=== PATIENT | male | born 1955 | race Hispanic/Latino ===

== ENCOUNTER 2020-02-08 09:53 | Inpatient (IN) | payer OTHER, SELFPAY ==
[2020-02-08] MEDS ORDERED: Dexamethasone 10 MG/ML VIAL ONE (10:22)
[2020-02-08 10:42] LABS: #Lymphocytes 0.5 thou/uL (1.20-3.40); #Monocytes 0.2 thou/uL (0.11-0.59); #Neutrophils 3.8 thou/uL (1.40-6.50); %Basophils 0.4 % (0.0-1.0); %Eosinophils 0.2 % (0.0-10.0); %Lymphocytes 10.8 % (21.0-51.0); %Monocytes 4.8 % (0.0-10.0); %Neutrophils 83.7 % (42.0-75.0); Hemoglobin 15.4 g/dL (14.0-18.0); Mean Corpuscular HGB CONC 33.9 g/dL (32.0-36.0); Mean Corpuscular Volume 85.4 fL (78.0-98.0); Mean Platelet Volume 10.3 fL (7.4-10.4); Platelet Count 124 thou/uL (130-400); RBC Distribution Width 12.7 % (11.5-14.5); Red Blood Cell (RBC) Count 5.31 mill/uL (4.70-6.10); White Blood Cell (WBC) Count 4.6 thou/uL (4.8-10.8)
[2020-02-08 11:04] LABS: ALT (SGPT) 22 U/L (8-55); AST (SGOT) 26 U/L (5-34); Albumin 4.1 g/dL (3.4-4.8); Alkaline Phosphatase 75 U/L (40-110); Anion Gap 14 mmol/L (10-20); BUN (Urea Nitrogen) 12 mg/dL (8.4-25.7); Bilirubin, Total 0.6 mg/dL (0.2-1.2); Calc. Creatinine Clearance 0 mL/min (70-130); Calcium 8.7 mg/dL (7.8-10.44); Carbon Dioxide 23 mmol/L (23-31); Chloride 98 mmol/L (98-107); Estimated GFR-MDRD Greater than 90; Globulin 3.1 g/dL (2.4-3.5); Glucose 128 mg/dL (80-115); Protein, Total 7.2 g/dL (5.8-8.1); Sodium 131 mmol/L (136-145)
--- NOTE | 2020-02-08 11:17 | RAD ---
PORTABLE CHEST: HISTORY: Shortness of breath. Asthma. COMPARISON: No comparison. FINDINGS: There are patchy bibasilar infiltrates. The heart is upper normal size with mild vascular engorgemen t. IMPRESSION: Patchy bibasilar infiltrates and/or atelectasis. POS: AGW
[2020-02-08] MEDS ORDERED: Acetaminophen 500 MG TAB ONE (11:39)
[2020-02-08 12:29] LABS: Troponin I 0.019 ng/mL (< 0.028)
[2020-02-08] MEDS ORDERED: Acetaminophen 325 MG TAB PO PRN (13:16)
[2020-02-08] MEDS ORDERED: Ondansetron PF 4 MG/2 ML Vial IVP PRN ×2 (13:16→14:17)
[2020-02-08] MEDS ORDERED: Ondansetron ODT 4 MG TAB SL PRN (13:16)
[2020-02-08] MEDS ORDERED: Acetaminophen 650 MG Suppository PR PRN (14:17)
[2020-02-08] MEDS ORDERED: Ondansetron ODT 4 MG TAB PO PRN (14:17)
[2020-02-08] MEDS ORDERED: Senokot S 8.6-50 MG TAB PO PRN (14:17)
[2020-02-08] MEDS ORDERED: Albuterol Sulfate 2.5 mg/3 ml Neb NEB PRN (14:18)
[2020-02-08] MEDS ORDERED: Dextrose 5% in Water 1,000 ML IV PRN (14:19)
[2020-02-08] MEDS ORDERED: Dextrose 50% Abboject 50 ML SYRINGE SLOW IVP PRN (14:19)
[2020-02-08] MEDS ORDERED: HumaLOG 300 UNITS/3 ML VIAL SC PRN (14:19)
[2020-02-08 14:53] VITALS: BMI 31.6
--- NOTE | 2020-02-08 15:25 | HP ---
PRIMARY CARE PHYSICIAN: [facility] in [place]. CHIEF COMPLAINT: Shortness of breath. HISTORY OF PRESENT ILLNESS: This is a 64-year-old male with a past medical history of asthma, hypertension, and diabetes, who presented to the emergency room with a 3-day history of worsening of his asthma symptoms, increasing cough nonproductive with chest pain from the cough, and increasing shortness of breath. He has been taking his Symbicort as well as his nebulizer every hour, he states without any improvement. He reports that his one of his children has had some allergy symptoms and is currently getting COVID testing, but no one is tested positive yet and no one at his work has been having any symptoms recently. He has no known positive COVID contacts. The patient was evaluated in the emergency room. He was found to be in some respiratory distress, improved with oxygen. He was also found to have a temperature of 102, it is down with Tylenol and he had a COVID test done and is being admitted to the floor after a dose of dexamethasone in the emergency room. REVIEW OF SYSTEMS: CONSTITUTIONAL: No fevers that he has noticed at home. No chills. EYES: No double vision or blurred vision. ENT: No congestion, drainage, or sore throat. CARDIOVASCULAR: See HPI. No palpitations or racing heart. PULMONARY: See HPI. GASTROINTESTINAL: No abdominal pain. No nausea or vomiting. He has had some loose stools about once per day for the last 3 days. No mucus or blood in them. GENITOURINARY: No dysuria or hematuria. MUSCULOSKELETAL: He has some diffuse muscle and body aches, especially in his back. SKIN: No rashes or lesions noted. NEUROLOGIC: No numbness, tingling, or focal weakness. PAST MEDICAL HISTORY: 1. Hypertension. 2. Diabetes mellitus type 2. 3. Gastroesophageal reflux disease. 4. Asthma. 5. Hemorrhoids. PAST SURGICAL HISTORY: 1. Knee surgery. 2. Tonsillectomy. 3. Cardiac stents are mentioned in the ER note; however, the patient strenuously denies ever having cardiac stents or any cardiac history and states he has never had an angiogram or any procedure that type done in the past. SOCIAL HISTORY: The patient quit smoking 25 to 30 years ago and he does not drink regular alcohol since then either. No illicit drugs. He is and lives with his and has 2 children. He states he is a full code. Should he be incapacitated, he states that his has been dealing with some cancer treatments recently and so, he does not want her to be his medical decision maker. He says his two children will be his medical decision makers, their names are Wendy and Henrik Mccray. FAMILY HISTORY: Mother had diabetes. ALLERGIES: ASPIRIN AND NONSTEROIDALS CAUSE ASTHMA EXACERBATIONS THAT REQUIRE HOSPITALIZATION. CURRENT MEDICATIONS: 1. Symbicort. 2. Unknown yellow inhaler. 3. Unknown nebulizer treatments. 4. Prilosec. 5. Unknown other medications, the patient does not know what he takes at home. PHYSICAL EXAMINATION: VITAL SIGNS: Blood pressure 116/64, pulse 105, respirations 20, temperature 100.4 down from 102.8 initially, O2 saturation up to 94% on 2 L of oxygen and was at 91%, and he was having increased work of breathing when he first arrived. He appears to be breathing comfortably now. GENERAL: This is a well-developed, obese male, in no acute distress. HEENT: Pupils are equal, round, and reactive to light. Nares with nasal cannula oxygen in place. Oropharynx covered with mass currently. He is actively coughing as does not do further exam in this area. NECK: Supple. No lymphadenopathy. No thyroid nodules or enlargement. No JVD. HEART: Regular rhythm. Mildly tachycardic. No murmurs, rubs, or gallops. LUNGS: The patient has some bibasilar crackles that are dry sounding. Decent air movement throughout. Occasional wheezing. No increased work of breathing on the oxygen. ABDOMEN: Soft, nontender to palpation. Normoactive bowel sounds. No hepatosplenomegaly or other masses. EXTREMITIES: No clubbing, cyanosis, or edema. SKIN: No rashes or lesions noted. NEUROLOGIC: The patient moves all extremities equally. No facial droop. PSYCHIATRIC: Alert and oriented x3. Normal mood and affect. LABORATORY DATA: CBC with a white blood cell count of low at 4.6, neutrophils are 83%, lymphocytes are low at 10%. The rest of his CBC is normal. Complete metabolic panel is notable for sodium of 131 and glucose of 128. The rest of it is normal. Lactic acid was negative. Troponin was negative x1. IMAGING STUDIES: X-ray done in the emergency room along with the radiologist's report, this is some patchy bibasilar infiltrate/atelectasis. EKG done in the emergency room shows sinus tachycardia of 118 beats per minute with frequent PVCs. No other significant ST-segment changes or T-wave abnormalities. ASSESSMENT: 1. Viral pneumonia, likely COVID infection. We will continue dexamethasone that started in the emergency room. This should help with any asthma exacerbation as well. We will give supplementary oxygen. 2. Sepsis with fever, tachycardia, and drop in O2 saturations. The patient received some IV fluids in the emergency room. His lactic acid was negative. At this point, he does not look to have a bacterial infection, so we will hold off on any antibiotics. 3. Asthma with exacerbation from #1. We will continue dexamethasone 6 mg daily for 10 days. We will give albuterol inhaler every 4 hours as needed for coughing, wheezing, shortness of breath, and will resume his Symbicort twice a day. 4. Gastroesophageal reflux disease. We will put the patient on a PPI daily. 5. Diabetes mellitus type 2. We will put the patient on fingerstick blood sugars q.a.c. and at bedtime with a low insulin sliding scale. Should his blood sugars spikes significantly from the dexamethasone, we will start him on daily long-acting insulin. We will also try and find out what diabetes medicines he is on at home. 6. Deep venous thrombosis prophylaxis. Put the patient on subcu Lovenox daily. CODE STATUS: The patient is a full code. Should he be incapacitated, he would like his children, Wendy and Henrik Mccray, to be his medical decision makers. Job ID: [id number]
[2020-02-08] MEDS: Guaifenesin DM 100-10/5 ML UDCUP PO PRN (17:48)
[2020-02-08] MEDS ORDERED: Albuterol 200 PUFF (6.7GM INHALER) INH PRN (23:51)
[2020-02-09 06:41] LABS: #Lymphocytes 0.7 thou/uL (1.20-3.40); #Monocytes 0.4 thou/uL (0.11-0.59); #Neutrophils 6.4 thou/uL (1.40-6.50); %Basophils 0.2 % (0.0-1.0); %Eosinophils 0.2 % (0.0-10.0); %Lymphocytes 9.7 % (21.0-51.0); %Monocytes 5.3 % (0.0-10.0); %Neutrophils 84.7 % (42.0-75.0); Hemoglobin 15.2 g/dL (14.0-18.0); Mean Corpuscular HGB CONC 34.9 g/dL (32.0-36.0); Mean Corpuscular Hemoglobin 29.9 pg (27.0-31.0); Mean Corpuscular Volume 85.5 fL (78.0-98.0); Mean Platelet Volume 10.3 fL (7.4-10.4); Platelet Count 132 thou/uL (130-400); RBC Distribution Width 12.7 % (11.5-14.5); Red Blood Cell (RBC) Count 5.09 mill/uL (4.70-6.10); White Blood Cell (WBC) Count 7.5 thou/uL (4.8-10.8)
[2020-02-09 07:02] LABS: Anion Gap 13 mmol/L (10-20); BUN (Urea Nitrogen) 18 mg/dL (8.4-25.7); Calc. Creatinine Clearance 140 mL/min (70-130); Calcium 8.7 mg/dL (7.8-10.44); Carbon Dioxide 24 mmol/L (23-31); Chloride 99 mmol/L (98-107); Estimated GFR-MDRD Greater than 90; Glucose 119 mg/dL (80-115); Potassium 3.8 mmol/L (3.5-5.1); Sodium 132 mmol/L (136-145)
[2020-02-09] MEDS: Dexamethasone 4 MG TAB PO SCH (07:37)
[2020-02-09] MEDS: Enoxaparin Sodium 40 MG/0.4 ML SYRINGE SC SCH (07:38)
[2020-02-09] MEDS: Acetaminophen 325 MG TAB PO PRN (08:00)
--- NOTE | 2020-02-09 10:34 | EKG ---
Test Reason : Blood Pressure : / mmHG Vent. Rate : 118 BPM Atrial Rate : 118 BPM P-R Int : 148 ms QRS Dur : 078 ms QT Int : 320 ms P-R-T Axes : 005 018 041 degrees QTc Int : 448 ms Sinus tachycardia with frequent Premature ventricular complexes and Fusion complexes Otherwise normal ECG Confirmed by DREA AMEZCUA DO ([id number]), proposal editor BOOGIE GAONA ([id number]) on 02/09/2020 10:34:28 AM Referred By: Confirmed By:DREA AMEZCUA DO
[2020-02-09] MEDS: HumaLOG 300 UNITS/3 ML VIAL SC PRN ×2 (12:44→18:00)
--- NOTE | 2020-02-09 13:54 | PRG ---
DATE OF SERVICE: 02/09/2020 SUBJECTIVE: The patient is seen and examined at the bedside. He noticed some improvement since yesterday. His appetite is fair. Shortness of breath improved. OBJECTIVE: VITAL SIGNS: Blood pressure is 101/65, pulse is 80, temperature is 98, maximal temperature was 100, respiratory rate is 18, and O2 saturation is 98% on 2 L by nasal cannula. HEENT: His head is atraumatic and normocephalic. Eyes are PERRLA. Sclerae are nonicteric. Oral mucosa is moist. NECK: Supple. LUNGS: Breath sounds somewhat diminished at both bases. No wheezing. Few crackles at both bases and few rales at both bases, similar bilaterally. ABDOMEN: Soft, nontender, nondistended. EXTREMITIES: No clubbing, cyanosis or edema. NEUROLOGIC: He follows my commands. He moves his all 4 extremities. There is no any motor deficits. LABORATORY DATA: Showed normal white count, normal hemoglobin, normal hematocrit. Sodium of 132, potassium 3.8, chloride 99, CO2 of 24, BUN 18, creatinine 0.69. Glycemia is ranging from 119 to 198. Calcium 8.7. Microbiology showed 2 negative blood cultures. IMPRESSION: 1. Viral pneumonia likely COVID infection but the testing is still in progress. 2. Sepsis. 3. Asthma, improved. 4. Gastroesophageal reflux disease. 5. Diabetes mellitus type 2, relatively well controlled. PLAN: Plan is to continue observation and isolation for COVID. Continue dexamethasone. Continue albuterol p.r.n. If his COVID testing comes back negative and he improves quickly, most likely he will be able to go home soon on oral regimen. We should have results on his testing back by tomorrow morning. Job ID: [id number]
[2020-02-09] MEDS: Guaifenesin DM 100-10/5 ML UDCUP PO PRN ×2 (14:14→18:54)
[2020-02-09 15:05] LABS: SARS-CoV-2 MS2 Positive; SARS-CoV-2 N Gene Positive; SARS-CoV-2 S Gene Positive; SARS-CoV-2 orf1ab Positive
[2020-02-10] MEDS: Acetaminophen 325 MG TAB PO PRN ×6 (01:22→23:52)
[2020-02-10] MEDS: Guaifenesin DM 100-10/5 ML UDCUP PO PRN ×3 (01:22→23:29)
[2020-02-10] MEDS: Dexamethasone 4 MG TAB PO SCH (09:39)
[2020-02-10] MEDS: Enoxaparin Sodium 40 MG/0.4 ML SYRINGE SC SCH (09:40)
--- NOTE | 2020-02-10 09:57 | PDOC.HOSPP ---
- Subjective Encounter Date: 02/10/20 Encounter Time: 12:00 Subjective: Patient was doing ok on RA overnight, but now back on O2. Cough and SOB unchanged. - Objective Vital Signs & Weight: Vital Signs (12 hours) Temp Pulse Resp BP Pulse Ox 02/10/20 07:57 98.2 F 67 16 105/64 96 02/10/20 04:45 98.8 F 70 18 103/62 96 02/10/20 03:15 95 02/10/20 01:15 100.6 F H 88 16 117/62 95 Weight Weight 196 lb 6.4 oz I&O: 02/09/20 02/10/20 02/11/20 06:59 06:59 06:59 Intake Total 610 1450 Balance 610 1450 Result Diagrams: 02/09/20 06:28 02/09/20 06:28 Additional Labs: Accuchecks 02/10/20 02/09/20 02/09/20 05:32 20:54 16:28 POC Glucose 109 133 H 244 H 02/09/20 11:49 POC Glucose 198 H Hospitalist ROS - Review of Systems Constitutional: reports: fever Respiratory: reports: cough, shortness of breath Cardiovascular: denies: chest pain Gastrointestinal: denies: nausea, vomiting, abdominal pain Genitourinary: denies: dysuria - Medication Medications: Active Medications Generic Name Dose Route Start Last Admin Trade Name Freq PRN Reason Stop Dose Admin Acetaminophen 650 mg 02/08/20 14:17 02/10/20 05:23 Tylenol PO 650 mg Q4H PRN Administration Headache/Fever/Mild Pain (1-3) Dexamethasone 6 mg 02/09/20 08:00 02/10/20 09:39 Decadron PO 6 mg QAM-WM ZEINAB Administration Enoxaparin Sodium 40 mg 02/09/20 09:00 02/10/20 09:40 Lovenox SC Not Given 0900 ZEINAB Guaifenesin/Dextromethorphan 15 ml 02/08/20 14:17 02/10/20 05:22 Robitussin Dm PO 15 ml Q4H PRN Administration Cough Insulin Human Lispro 0 units 02/08/20 14:19 02/09/20 18:00 Humalog SC 3 unit .MILD SLIDING SCALE PRN Administration Mild Correctional Scale Pantoprazole Sodium 40 mg 02/09/20 09:00 02/10/20 09:39 Protonix PO 40 mg DAILY ZEINAB Administration - Exam General Appearance: NAD, awake alert ENT: moist mucosa Heart: RRR, no murmur Respiratory: CTAB, no wheezes, no rales, no ronchi Gastrointestinal: soft, non-tender, non-distended, normal bowel sounds Psychiatric: normal affect, normal behavior, A&O x 3 Hosp A/P (1) Pneumonia due to COVID-19 virus Code(s): U07.1 - COVID-19; J12.89 - OTHER VIRAL PNEUMONIA Status: Acute (2) Sepsis Code(s): A41.9 - SEPSIS, UNSPECIFIED ORGANISM Status: Resolved (3) Asthma exacerbation Code(s): J45.901 - UNSPECIFIED ASTHMA WITH (ACUTE) EXACERBATION Status: Acute Qualifiers: Asthma severity: mild (4) GERD (gastroesophageal reflux disease) Code(s): K21.9 - GASTRO-ESOPHAGEAL REFLUX DISEASE WITHOUT ESOPHAGITIS Status: Acute (5) Diabetes mellitus type 2 in obese Code(s): E11.69 - TYPE 2 DIABETES MELLITUS WITH OTHER SPECIFIED COMPLICATION; E66.9 - OBESITY, UNSPECIFIED Status: Acute - Plan Patient positive for Covid-19. Was doing better but now requiring more oxygen. If deteriorates will ask Dr. Palacios for imput.
[2020-02-10] MEDS: HumaLOG 300 UNITS/3 ML VIAL SC PRN (16:55)
[2020-02-10] MEDS ORDERED: Benzonatate 100 MG CAP PO PRN (23:28)
[2020-02-11] MEDS: Dexamethasone 4 MG TAB PO SCH (07:48)
[2020-02-11] MEDS: Acetaminophen 325 MG TAB PO PRN (07:49)
[2020-02-11] MEDS: Enoxaparin Sodium 40 MG/0.4 ML SYRINGE SC SCH (08:02)
--- NOTE | 2020-02-11 08:46 | PDOC.HOSPP ---
- Subjective Encounter Date: 02/11/20 Encounter Time: 13:00 Subjective: Patient doing better today. He was able to be weaned off of O2 this morning, and though he feels some shortness of breath on ambulation his sats have been staying up. No cough today. Energy better and eating better. - Objective Vital Signs & Weight: Vital Signs (12 hours) Temp Pulse Resp BP Pulse Ox 02/11/20 08:00 93 L 02/11/20 07:58 98.1 F 69 16 114/69 93 L 02/11/20 05:15 98.4 F 65 18 110/73 93 L 02/11/20 01:42 94 L 02/10/20 23:52 98.3 F 72 18 116/71 94 L Weight Weight 196 lb 6.4 oz I&O: 02/10/20 02/11/20 02/12/20 06:59 06:59 06:59 Intake Total 1450 730 Balance 1450 730 Result Diagrams: 02/09/20 06:28 02/09/20 06:28 Additional Labs: Accuchecks 02/11/20 02/10/20 02/10/20 06:05 20:45 15:54 POC Glucose 120 H 170 H 222 H 02/10/20 11:52 POC Glucose 129 H Hospitalist ROS - Review of Systems Constitutional: denies: fever, chills Respiratory: reports: shortness of breath, SOB with excertion. denies: cough Cardiovascular: denies: chest pain, palpitations Gastrointestinal: denies: nausea, vomiting, abdominal pain - Medication Medications: Active Medications Generic Name Dose Route Start Last Admin Trade Name Annetta PRN Reason Stop Dose Admin Acetaminophen 650 mg 02/08/20 14:17 02/11/20 07:49 Tylenol PO 650 mg Q4H PRN Administration Headache/Fever/Mild Pain (1-3) Benzonatate 100 mg 02/10/20 23:28 02/11/20 05:58 Tessalon PO 100 mg TIDPRN PRN Administration Cough Dexamethasone 6 mg 02/09/20 08:00 02/11/20 07:48 Decadron PO 6 mg QAM-WM ZEINAB Administration Enoxaparin Sodium 40 mg 02/09/20 09:00 02/11/20 08:02 Lovenox SC Not Given 0900 ZEINAB Guaifenesin/Dextromethorphan 15 ml 02/08/20 14:17 02/10/20 23:29 Robitussin Dm PO 15 ml Q4H PRN Administration Cough Insulin Human Lispro 0 units 02/08/20 14:19 02/10/20 16:55 Humalog SC 3 unit .MILD SLIDING SCALE PRN Administration Mild Correctional Scale Pantoprazole Sodium 40 mg 02/09/20 09:00 02/11/20 07:48 Protonix PO 40 mg DAILY ZEINAB Administration - Exam General Appearance: NAD, awake alert ENT: moist mucosa Heart: RRR, no murmur, no gallops, no rubs Respiratory: CTAB, no wheezes, no rales, no ronchi, no tachypnea Gastrointestinal: soft, non-tender, non-distended, normal bowel sounds Psychiatric: normal affect, normal behavior, A&O x 3 Hosp A/P (1) Pneumonia due to COVID-19 virus Code(s): U07.1 - COVID-19; J12.89 - OTHER VIRAL PNEUMONIA Status: Acute (2) Sepsis Code(s): A41.9 - SEPSIS, UNSPECIFIED ORGANISM Status: Resolved (3) Asthma exacerbation Code(s): J45.901 - UNSPECIFIED ASTHMA WITH (ACUTE) EXACERBATION Status: Acute Qualifiers: Asthma severity: mild (4) GERD (gastroesophageal reflux disease) Code(s): K21.9 - GASTRO-ESOPHAGEAL REFLUX DISEASE WITHOUT ESOPHAGITIS Status: Acute (5) Diabetes mellitus type 2 in obese Code(s): E11.69 - TYPE 2 DIABETES MELLITUS WITH OTHER SPECIFIED COMPLICATION; E66.9 - OBESITY, UNSPECIFIED Status: Acute - Plan Patient positive for Covid-19. On dexamethasone 6mg daily 4/10 doses. Patient weaned back off O2 this morning. Will watch closely for deterioration. Possibly home tomorrow if continues to do well. comfort station supervisor phone used for interview.
[2020-02-12] MEDS: Enoxaparin Sodium 40 MG/0.4 ML SYRINGE SC SCH (08:49)
[2020-02-12] MEDS: Dexamethasone 4 MG TAB PO SCH (08:49)
--- NOTE | 2020-02-12 15:39 | PDOC.HOSPP ---
- Subjective Encounter Date: 02/12/20 Encounter Time: 13:30 Subjective: pt up in bed states he feels well - Objective Vital Signs & Weight: Vital Signs (12 hours) Temp Pulse Resp BP Pulse Ox 02/12/20 08:50 97.7 F 65 20 117/75 92 L Weight Weight 196 lb 6.4 oz I&O: 02/11/20 02/12/20 02/13/20 06:59 06:59 06:59 Intake Total 730 Balance 730 Result Diagrams: 02/09/20 06:28 02/09/20 06:28 Additional Labs: Accuchecks 02/12/20 02/12/20 02/11/20 11:16 04:49 20:51 POC Glucose 145 H 116 H 183 H 02/11/20 16:00 POC Glucose 207 H Hospitalist ROS - Review of Systems Cardiovascular: denies: chest pain, palpitations, orthopnea, paroxysmal noc. dyspnea, edema, light headedness, other Gastrointestinal: denies: nausea, vomiting, abdominal pain, diarrhea, constipation, melena, hematochezia, other Genitourinary: denies: dysuria, frequency, incontinence, hematuria, retention, other - Medication Medications: Active Medications Generic Name Dose Route Start Last Admin Trade Name Freq PRN Reason Stop Dose Admin Acetaminophen 650 mg 02/08/20 14:17 02/11/20 07:49 Tylenol PO 650 mg Q4H PRN Administration Headache/Fever/Mild Pain (1-3) Benzonatate 100 mg 02/10/20 23:28 02/11/20 05:58 Tessalon PO 100 mg TIDPRN PRN Administration Cough Dexamethasone 6 mg 02/09/20 08:00 02/12/20 08:49 Decadron PO 6 mg QAM-WM ZEINAB Administration Enoxaparin Sodium 40 mg 02/09/20 09:00 02/12/20 08:49 Lovenox SC 40 mg 0900 ZEINAB Administration Guaifenesin/Dextromethorphan 15 ml 02/08/20 14:17 02/10/20 23:29 Robitussin Dm PO 15 ml Q4H PRN Administration Cough Insulin Human Lispro 0 units 02/08/20 14:19 02/10/20 16:55 Humalog SC 3 unit .MILD SLIDING SCALE PRN Administration Mild Correctional Scale Pantoprazole Sodium 40 mg 02/09/20 09:00 02/12/20 08:49 Protonix PO 40 mg DAILY ZEINAB Administration - Exam Neck: negative: supple, symmetric, no JVD, no thyromegaly, no lymphadenopathy, no carotid bruit, JVD Heart: negative: RRR, no murmur, no gallops, no rubs, normal peripheral pulses, irregular, diminshed peripheral pulses, murmur present, II/IV, III/IV Respiratory: negative: CTAB, no wheezes, no rales, no ronchi, normal chest expansion, no tachypnea, normal percussion, rales, rhonchi, tachypneic, wheezes Gastrointestinal: negative: soft, non-tender, non-distended, normal bowel sounds , no palpable masses, no hepatomegaly, no splenomegaly, no bruit, no guarding, no rigidity, tender to palpation, distended, diminished bowl sounds, voluntary guarding Hosp A/P (1) Asthma exacerbation Code(s): J45.901 - UNSPECIFIED ASTHMA WITH (ACUTE) EXACERBATION Status: Acute Qualifiers: Asthma severity: mild (2) Diabetes mellitus type 2 in obese Code(s): E11.69 - TYPE 2 DIABETES MELLITUS WITH OTHER SPECIFIED COMPLICATION; E66.9 - OBESITY, UNSPECIFIED Status: Acute (3) GERD (gastroesophageal reflux disease) Code(s): K21.9 - GASTRO-ESOPHAGEAL REFLUX DISEASE WITHOUT ESOPHAGITIS Status: Acute (4) Pneumonia due to COVID-19 virus Code(s): U07.1 - COVID-19; J12.89 - OTHER VIRAL PNEUMONIA Status: Acute (5) Sepsis Code(s): A41.9 - SEPSIS, UNSPECIFIED ORGANISM Status: Resolved - Plan will continue steroids/vit c and zinc. pt is off oxygen but feels sob. will watch him one more day if he feels well will discharge. dexamethasone 11/21
[2020-02-12] MEDS: HumaLOG 300 UNITS/3 ML VIAL SC PRN (16:32)
[2020-02-13] MEDS: Dexamethasone 4 MG TAB PO SCH (09:01)
[2020-02-13] MEDS: Ascorbic Acid 500 mg Chewable Tablet PO SCH (09:01)
[2020-02-13] MEDS: Zinc Sulfate 220 MG CAP PO SCH (09:02)
[2020-02-13] MEDS: Enoxaparin Sodium 40 MG/0.4 ML SYRINGE SC SCH (09:02)
[2020-02-13] MEDS: HumaLOG 300 UNITS/3 ML VIAL SC PRN (16:53)
[2020-02-13 17:21] LABS: #Lymphocytes 0.6 thou/uL (1.20-3.40); #Monocytes 0.3 thou/uL (0.11-0.59); #Neutrophils 6.5 thou/uL (1.40-6.50); %Basophils 0.3 % (0.0-1.0); %Eosinophils 0.3 % (0.0-10.0); %Lymphocytes 8.1 % (21.0-51.0); %Monocytes 4.4 % (0.0-10.0); %Neutrophils 86.9 % (42.0-75.0); Mean Corpuscular HGB CONC 33.9 g/dL (32.0-36.0); Mean Corpuscular Hemoglobin 28.7 pg (27.0-31.0); Mean Corpuscular Volume 84.5 fL (78.0-98.0); Mean Platelet Volume 8.9 fL (7.4-10.4); Platelet Count 300 thou/uL (130-400); RBC Distribution Width 12.5 % (11.5-14.5); Red Blood Cell (RBC) Count 5.57 mill/uL (4.70-6.10); White Blood Cell (WBC) Count 7.5 thou/uL (4.8-10.8)
[2020-02-13 17:44] LABS: ALT (SGPT) 57 U/L (8-55); AST (SGOT) 23 U/L (5-34); Alkaline Phosphatase 83 U/L (40-110); Anion Gap 12 mmol/L (10-20); BUN (Urea Nitrogen) 16 mg/dL (8.4-25.7); Bilirubin, Total 0.6 mg/dL (0.2-1.2); CRP (Inflammatory) Less than 0.50 mg/dL (= or < 0.5); Calc. Creatinine Clearance 129 mL/min (70-130); Calcium 8.9 mg/dL (7.8-10.44); Carbon Dioxide 25 mmol/L (23-31); Chloride 98 mmol/L (98-107); Estimated GFR-MDRD Greater than 90; Globulin 3.2 g/dL (2.4-3.5); Glucose 211 mg/dL (80-115); Potassium 4.5 mmol/L (3.5-5.1); Protein, Total 7.2 g/dL (5.8-8.1); Sodium 130 mmol/L (136-145)
[2020-02-14 07:56] LABS: ALT (SGPT) 45 U/L (8-55); AST (SGOT) 16 U/L (5-34); Albumin 3.5 g/dL (3.4-4.8); Alkaline Phosphatase 70 U/L (40-110); Bilirubin, Direct 0.4 mg/dL (0.1-0.3); Bilirubin, Total 0.7 mg/dL (0.2-1.2); Protein, Total 6.4 g/dL (5.8-8.1)
[2020-02-14] MEDS: Zinc Sulfate 220 MG CAP PO SCH (08:02)
[2020-02-14] MEDS: Ascorbic Acid 500 mg Chewable Tablet PO SCH (08:02)
[2020-02-14] MEDS: Dexamethasone 4 MG TAB PO SCH (08:02)
[2020-02-14] MEDS: Enoxaparin Sodium 40 MG/0.4 ML SYRINGE SC SCH (08:03)
[2020-02-14 12:32] VITALS: BP 117/73; TEMP 97.7
--- NOTE | 2020-02-15 14:45 | PDOC.HOSPP ---
- Subjective Encounter Date: 02/13/20 Encounter Time: 15:00 Subjective: pt up in bed no complains - Objective Vital Signs & Weight: Weight Weight 196 lb 6.4 oz I&O: 02/14/20 02/15/20 02/16/20 06:59 06:59 06:59 Intake Total 700 520 Balance 700 520 Result Diagrams: 02/13/20 17:15 02/13/20 17:15 Hospitalist ROS - Review of Systems Respiratory: denies: cough, dry, shortness of breath, hemoptysis, SOB with excertion, pleuritic pain, sputum, wheezing, other Cardiovascular: denies: chest pain, palpitations, orthopnea, paroxysmal noc. dyspnea, edema, light headedness, other Gastrointestinal: denies: nausea, vomiting, abdominal pain, diarrhea, constipation, melena, hematochezia, other - Exam Neck: negative: supple, symmetric, no JVD, no thyromegaly, no lymphadenopathy, no carotid bruit, JVD Heart: negative: RRR, no murmur, no gallops, no rubs, normal peripheral pulses, irregular, diminshed peripheral pulses, murmur present, II/IV, III/IV Respiratory: negative: CTAB, no wheezes, no rales, no ronchi, normal chest expansion, no tachypnea, normal percussion, rales, rhonchi, tachypneic, wheezes Gastrointestinal: negative: soft, non-tender, non-distended, normal bowel sounds , no palpable masses, no hepatomegaly, no splenomegaly, no bruit, no guarding, no rigidity, tender to palpation, distended, diminished bowl sounds, voluntary guarding Hosp A/P (1) Asthma exacerbation Code(s): J45.901 - UNSPECIFIED ASTHMA WITH (ACUTE) EXACERBATION Status: Acute Qualifiers: Asthma severity: mild (2) Diabetes mellitus type 2 in obese Code(s): E11.69 - TYPE 2 DIABETES MELLITUS WITH OTHER SPECIFIED COMPLICATION; E66.9 - OBESITY, UNSPECIFIED Status: Acute (3) GERD (gastroesophageal reflux disease) Code(s): K21.9 - GASTRO-ESOPHAGEAL REFLUX DISEASE WITHOUT ESOPHAGITIS Status: Acute (4) Pneumonia due to COVID-19 virus Code(s): U07.1 - COVID-19; J12.89 - OTHER VIRAL PNEUMONIA Status: Acute (5) Sepsis Code(s): A41.9 - SEPSIS, UNSPECIFIED ORGANISM Status: Resolved - Plan will continue steroids/vit c and zinc. pt is off oxygen but feels sob. will watch him one more day if he feels well will discharge. dexamethasone 11/21 7/ pt doing well, however he feels a bit uncomfortable to go home. will watch him for one more day and will walk him to see if he needs oxygen. If stable overnight will discharge in am.
--- NOTE | 2020-02-16 00:53 | DIS ---
DATE OF ADMISSION: 02/08/2020 DATE OF DISCHARGE: 02/14/2020 DISCHARGE DIAGNOSES: As of the followin. Shortness of breath secondary to COVID pneumonia. 2. Mild asthma exacerbation. 3. Diabetes. 4. Reflux. HOSPITAL COURSE: The patient is a 64-year-old male, who initially presented to the hospital on 02/07 with complaints of shortness of breath. The patient at this time was tested, he was COVID positive. Dexamethasone was started in the ER. The patient initially was on oxygen. However, on discharge, he was ambulated and his oxygen saturation around 94. The patient continued to improve. His inflammatory markers improved. He was discharged home. PHYSICAL EXAMINATION: VITAL SIGNS: His vitals on discharge were 97.7, 63, 20, 94% on room air, 117/73. GENERAL: He is awake, alert, and oriented x3. Does not appear in distress. CV: S1, S2 present. No murmurs, rubs, or gallops. MEDICATIONS: 1. Metformin 500 mg daily. 2. Zinc daily. 3. Decadron 6 mg to finish a 10-day course. 4. Tessalon Perles as needed. He was advised to take Decadron with food. He will follow up with his primary care doctor. Job ID: [id number]
== END 2020-02-14 14:12 | disposition home or self-care (01) | DRG 871 ==
LOC: ERS 09:53 → T4-B 11:51
PROVIDERS: ADMIT Emergency Medicine; ATTEND Emergency Medicine
PROC: 8E0ZXY6 Isolation (ICD-10-PCS; principal; 2020-02-08)
DX: A41.89 Other specified sepsis (principal); U07.1 COVID-19; J12.89 Other viral pneumonia; J45.21 Mild intermittent asthma with (acute) exacerbation; E11.9 Type 2 diabetes mellitus without complications; K21.9 Gastro-esophageal reflux disease without esophagitis; I10 Essential (primary) hypertension; Z95.5 Presence of coronary angioplasty implant and graft; Z88.5 Allergy status to narcotic agent; Z88.8 Allergy status to other drugs, medicaments and biological substances; Z79.4 Long term (current) use of insulin; Z87.891 Personal history of nicotine dependence
CPT/HCPCS: 36415; 36416; 71045; 80048; 80053; 80076; 82728; 83605; 84484; 85025; 86140; 87040; 87635; 93005; 96374; J1100; J1650; J8540; U0003